=== PATIENT | male | born 2000 | race Caucasian/White ===

== ENCOUNTER 2025-04-14 10:50 | Emergency (ER) | payer SELFPAY ==
[2025-04-14 10:54] VITALS: BP 114/69; PULSE 75; RESP 16; TEMP 36.4; O2SAT 100
[2025-04-14] MEDS: KETOROLAC 30 MG/ML VIAL (*BKC) IV PUSH (11:18)
[2025-04-14] MEDS: ONDANSETRON INJ 4 MG/2 ML VIAL IV PUSH (11:18)
[2025-04-14] MEDS: SODIUM CHLORIDE 0.9% IV 1,000 ML 999 ML IV CONT (11:19)
--- NOTE | 2025-04-14 12:08 | ED_ITS ---
HPI - Headache General Chief Complaint: Headache Stated Complaint: HEADACHE [id number] Time Seen by Provider: 04/14/25 11:01 History of Present Illness HPI Narrative: Patient is a 25-year-old male who presents ER with headache. Ongoing over last week. Right-sided in behind his eye. Reports he thinks it is a migraine but has no previous diagnosis of migraines. No photophobia or phonophobia. He does have sinus congestion and rhinorrhea times. He works out in the sun and thinks he may also be dehydrated. No improvement with Tylenol. No fevers or chills. No body aches. Related Data Allergies Allergy/AdvReac Type Severity Reaction Status Date / Time No Known Allergies Allergy Verified 04/14/25 10:54 Review of Systems Review of Systems: All systems reviewed & are unremarkable except as noted in HPI and below Constitutional: Constitutional: Reports no additional constitutional complai nts ENT: Reports system reviewed and no additional complaints, except as documented Cardiovascular: Cardiovascular: Reports no additional cardiovascular complaints Respiratory: Respiratory: Reports no additional respiratory complaints Gastrointestinal: Gastrointestinal: Reports no additional gastrointestinal complaints Neurologic: Reports system reviewed and no additional complaints, except as documented PMFSH Past Medical History Medical History (Updated 04/14/25 @ 13:41 by Marco Engel MD) Healthy adult male Surgical History Surgical History (Updated 04/14/25 @ 12:15 by Marco Engel MD) No history of previous surgery Exam Narrative: GENERAL: Well-appearing, well-nourished, and in no acute distress. HEAD: Normocephalic, atraumatic. EYES: PERRLA and EOMI. ENT: Mucous membranes moist. TMs normal bilaterally. CHEST: Clear to auscultation. No respiratory distress. HEART: Regular rate and rhythm. Normal peripheral pulses. ABDOMEN: Soft, nontender, nondistended. EXTREMITIES: Normal range of motion. No edema. SKIN: Warm, dry, no rash. NEURO: Alert and oriented x3. PSYCH: Normal mood and affect. Course Course Emergency Course: Headache improved with Toradol and fluids. Appropriate for discharge home. Vital Signs Vital signs: Vital Signs Temperature 97.6 F 04/14/25 10:54 Pulse Rate 75 04/14/25 10:54 Respiratory Rate 16 04/14/25 10:54 Blood Pressure 114/69 04/14/25 10:54 Pulse Oximetry 100 04/14/25 10:54 Oxygen Delivery Room Air 04/14/25 10:54 Temperature 97.6 F 04/14/25 10:54 Pulse Rate 50 L 04/14/25 12:50 Respiratory Rate 12 04/14/25 12:50 Blood Pressure 108/51 L 04/14/25 12:50 Pulse Oximetry 100 04/14/25 12:50 Oxygen Delivery Room Air 04/14/25 10:54 Discharge Plan Discharge Clinical Impression: Headache Patient Disposition: Home Condition: Stable Instructions: General Headache (ED) Additional Instructions: Try to stay well hydrated at home. Please return to the emergency department if you develop worsening of your headache or a new headache which is severe, associated with vision changes, associated with neck stiffness or fever, or if it is different from any other headache that you have had before. Return to the emergency department if you develop numbness, weakness or tingling or problems with coordination, or if you develop severe nausea and vomiting and are unable to keep down fluids at home. Patient Language: [place]an Prescriptions: New naproxen 375 mg tablet 375 mg PO BID Qty: 14 0RF fluticasone propionate [24 Hour Allergy Relief] 50 mcg/actuation spray,suspension 1 spray intranasal BID Qty: 16 0RF Rx Instructions: administer into each nostril Follow-up/Referrals: UNKNOWN,DOCTOR [Primary Care Provider] - 1 Week
[2025-04-14 12:50] VITALS: BP 108/51; PULSE 50; RESP 12; O2SAT 100
[2025-04-14 14:02] VITALS: BP 117/83; PULSE 77; RESP 18; O2SAT 99
== END 2025-04-14 14:07 | disposition home or self-care (01) ==
PROVIDERS: Emergency Provider Emergency Medicine
DX: R51.9 Headache, unspecified (principal)
CPT/HCPCS: 96361; 96374; 96375; 99284; J1885; J2405; J7030

== ENCOUNTER 2025-10-07 16:42 | Emergency (ER) | payer SELFPAY ==
[2025-10-07 16:47] VITALS: BP 115/71; PULSE 82; RESP 16; TEMP 36.7; O2SAT 100
[2025-10-07] MEDS: ALBUTEROL SULFATE (*SP) AEROSOL 1 PUFF 2 PUFF INHALATION (17:10)
[2025-10-07 17:44] LABS: Influenza A QL RT-PCR Positive (Negative); Influenza B QL RT-PCR Negative (Negative); RSV RNA, RT-PCR Negative (Negative); SARS-CoV-2 RNA PCR Negative (Negative)
[2025-10-07 18:02] VITALS: BP 132/79; PULSE 89; RESP 19; O2SAT 100
--- NOTE | 2025-10-07 18:41 | ED.MEDCLEAR ---
HPI - Medical Clearance General Chief complaint: Medical Clearance Stated complaint: URI symptoms Time Seen by Provider: 10/07/25 16:57 History of Present Illness HPI Narrative: Patient presenting here with URI symptoms, he has been having a cough, he is here for testing for work. Close contact has flu Related Information Allergies Allergy/AdvReac Type Severity Reaction Status Date / Time No Known Allergies Allergy Verified 04/14/25 10:54 Review of Systems Review of Systems: All systems reviewed & are unremarkable except as noted in HPI and below PMFSH Past Medical History Medical History (Updated 10/07/25 @ 17:50 by Delfina De La Garza MD) Healthy adult male Surgical History Surgical History (Updated 04/14/25 @ 12:15 by Marco Egnel MD) No history of previous surgery Exam Narrative: EXAMINATION OF ORGAN SYSTEMS/BODY AREAS: Constitutional: Vital signs per nursing GENERAL:[No acute distress, non-toxic appearing.] HEAD: Normal with no signs of head trauma. EYES: EOMI, conjunctiva normal ENT: Hearing grossly intact LUNGS: Nonlabored breathing. Wheezing bilaterally HEART: [Regular rate and rhythm] ABD: [Soft], [nontender to palpation] EXT: Normal range of motion SKIN: [No rashes or lesions.] NEURO: [Alert. No gross focal sensory or strength deficits.] PSYCH: Normal affect Course Vital Signs Vital signs: Vital Signs Temperature 98.0 F 10/07/25 16:47 Pulse Rate 82 10/07/25 16:47 Respiratory Rate 16 10/07/25 16:47 Blood Pressure 115/71 10/07/25 16:47 Pulse Oximetry 100 10/07/25 16:47 Oxygen Delivery Room Air 10/07/25 16:47 Temperature 98.0 F 10/07/25 16:47 Pulse Rate 89 10/07/25 18:02 Respiratory Rate 19 10/07/25 18:02 Blood Pressure 132/79 10/07/25 18:02 Pulse Oximetry 100 10/07/25 18:02 Oxygen Delivery Room Air 10/07/25 16:47 MDM MDM Narrative Medical decision making narrative: ED COURSE AND MEDICAL DECISION MAKING: This 25 year old patient presents with symptoms most suggestive of viral upper respiratory tract infection. He is well appearing no distress, nonlabored respirations, he does have wheezing bilaterally. He has quit smoking recently. Patient is treated symptomatically with prednisone, albuterol. Swabs positive for flu. He will be discharged home in stable condition with expectant management. Return precautions were provided. Prescriptions for albuterol and steroids given. Differential Diagnosis Differential Diagnosis: Bronchitis, viral syndrome, pneumonia Lab Data Labs: Lab Results 10/07/25 Range/Units 17:01 Influenza A (RT-PCR) Positive A (Negative) Influenza B (RT-PCR) Negative (Negative) RSV (RT-PCR) Negative (Negative) SARS-CoV-2 RNA (RT-PCR) Negative (Negative) Discharge Plan Discharge Clinical Impression: Acute bronchitis, Flu Patient Disposition: Home Condition: Stable Instructions: Influenza (ED), Acute Bronchitis (ED) Additional Instructions: You did test positive for the flu today. You can follow-up with a primary care doctor, take medications as prescribed, if your symptoms worsen, come back to the ER. Patient Language: [place]an Prescriptions: New prednisone 20 mg tablet 40 mg PO DAILY 4 Days Qty: 8 0RF albuterol sulfate 90 mcg/actuation HFA aerosol inhaler 2 puff inhalation QID PRN (Reason: shortness of breath or wheezing) Qty: 8.5 0RF No Action naproxen 375 mg tablet 375 mg PO BID Qty: 14 0RF fluticasone propionate [24 Hour Allergy Relief] 50 mcg/actuation spray,suspension 1 spray intranasal BID Qty: 16 0RF Rx Instructions: administer into each nostril Follow-up/Referrals: Avtar Cano MD [Physician, Family Practice] - 2 Days UNKNOWN,DOCTOR [Primary Care Provider]
== END 2025-10-07 18:03 | disposition home or self-care (01) ==
PROVIDERS: Emergency Provider Emergency Medicine
DX: J20.9 Acute bronchitis, unspecified (principal); J10.1 Influenza due to other identified influenza virus with other respiratory manifestations; Z20.822 Contact with and (suspected) exposure to COVID-19
CPT/HCPCS: 87637; 94664; 99283; A9270; J7512